=== PATIENT | female | born 1945 | race Caucasian/White ===

== ENCOUNTER → 2016-09-30 | Outpatient (CLI) | payer OTHER, MEDICARE ==
--- NOTE | 2016-09-30 15:52 | XA ---
Exam Date: 09/30/16 Patient's Age: 71 HEIGHT: 66.0 in WEIGHT: 166.0 lbs INDICATIONS: Back Pain, , Corticosteroid, Family Hx of Osteoporosis, Osteopenic, Post Menopausal FRACTURES: TREATMENTS: Ared, Baby Aspirin, Iron, Multi Vitamin, ProAir HFA ASSESSMENT: The BMD measured at Femur Neck Mean is 0.795 g/cm2 with a T-score of -1.7. This patient is considered osteopenic according to World Health Organization (WHO) criteria. Bone density is between 10 and 25% below young normal. Fracture risk is moderate. Treatment is advised. The BMD measured at Femur Troch Mean is 0.717 g/cm2 with a T-score of -1.2 is considered moderately low. Fracture risk is moderate. Treatment is advised if there are other risk factors. RESULTS: Site Region Age Classification T-Score BMD AP Spine L1-L4 70.1 Normal -0.9 1.068 g/cm2 AP Spine L1-L4 66.7 Osteopenia -1.3 1.029 g/cm2 Dual Femur Neck Mean 70.1 Osteopenia -1.7 0.795 g/cm2 Dual Femur Neck Mean 66.7 Osteopenia -1.6 0.809 g/cm2 Dual Femur Troch Mean 70.1 N/A -1.2 0.717 g/cm2 Dual Femur Troch Mean 66.7 N/A -1.1 0.720 g/cm2 Dual Femur Total Mean 70.1 Osteopenia -1.3 0.845 g/cm2 Dual Femur Total Mean 66.7 Osteopenia -1.1 0.867 g/cm2 World Health Organization - Criteria for post-menopausal, women: Normal: T-Score at or above -1 SD Osteopenia: T-Score between -1 and -2.5 SD Osteoporosis: T-Score at or below -2.5 SD RECOMMENDATION: Pharmacologic treatment recommendations & Initiate pharmacologic treatment: - In those with hip or vertebral (clinical or asymptomatic) fractures - In those with T -scores <-2.5 at the femoral neck, total hip, or lumbar spine by DXA - In postmenopausal women and men age 50 and older with low bone mass (T-score between -1.0 and -2.5, osteopenia) at the femoral neck, total hip, or lumbar spine by DXA and a 10-year hip fracture probability >3 % or a 10-year major osteoporosis-related fracture probability >20% based on the [place]-adapted WHO absolute fracture risk model (Fracture Risk Algorithm (FRAX); www. NOF.org and www.shef.ac.uk/FRAX) FOLLOW UP: People with diagnosed cases of osteoporosis or at high risk for fracture should have regular bone mineral density tests. For patients eligible for Medicare, routine testing is allowed once every 2 years. The testing frequency can be increased to 1 year for patients who have rapidly progressing disease, those who are reviewing or discontinuing medial therapy to restore bone mass, or have additional risk factors. People with diagnosed cases of osteoporosis or osteopenia should be regularly tested for bone mineral density. For patient eligible for Medicare, routine testing is allowed once every 2 years. The testing frequency can be increased to 1 year for patients who have rapidly progressing disease, or for those who are receiving medial therapy to restore bone mass. [facility] -- MICHELLE Mello [phone] - FAX: [phone] RONIT
--- NOTE | 2016-10-07 12:07 | MY ---
EXAMINATION: Bilateral digital mammography utilizing CAD. HISTORY: Screening exam. Comparison is made to previous studies dated 09/14/2015, 07/15/2014. FINDINGS: Bilateral scattered fibroglandular densities. No suspicious calcifications, masses or a rchitectural distortions. No pathologic appearing lymph nodes, no abnormal skin thickening or nipp le inversion. CAD highlighted regions appear normal at this time. IMPRESSION: BI-RADS category I - negative mammogram. Continued screening according to ACR-ACS gu idelines suggested. THE FALSE-NEGATIVE RATE OF MAMMOGRAM IS APPROXIMATELY 10%. MANAGEMENT OF A PALPABLE ABNORMALITY MUST BE BASED UPON CLINICAL GROUNDS. SENSITIVITY FOR DETECTION OF ABNORMALITIES IN DENSE BREASTS IS LOW. NOTE: A letter will be sent to the patient regarding findings. [facility] -- MICHELLE Mello [phone] - FAX [phone]
== END ==
LOC: MW.MAM 09:21
PROVIDERS: ATTEND Nurse Practitioner Family
DX: Z01.419 Encounter for gynecological examination (general) (routine) without abnormal findings (principal); Z12.31 Encounter for screening mammogram for malignant neoplasm of breast; M81.0 Age-related osteoporosis without current pathological fracture; M85.80 Other specified disorders of bone density and structure, unspecified site
CPT/HCPCS: 77080; 82270; G0202

== ENCOUNTER 2023-07-21 11:12 | Emergency (ER) | payer MEDICARE, BC, OTHER | END 2023-07-22 13:56 | disposition home or self-care (01) | LOC: MW.ED 11:12 | DX: M25.512 Pain in left shoulder (principal); J32.9 Chronic sinusitis, unspecified; Z88.7 Allergy status to serum and vaccine; V89.2XXA Person injured in unspecified motor-vehicle accident, traffic, initial encounter | CPT/HCPCS: 73030-LT; 99283; 99284 ==

== ENCOUNTER 2025-01-25 07:25 | Day surgery (SDC) | payer MEDICARE, BC ==
[~2025-01-25 07:25] MED LIST: Sodium Chloride 0.9% 10 ML Syringe FLUSH PRN; Sodium Chloride 0.9% 2.5 ML Syringe FLUSH PRN
[2025-01-25] MEDS: Lactated Ringers 1,000 ML IV SCH (08:03)
[2025-01-25] MEDS ORDERED: Propofol 200 MG/20 ML SDV ONE (09:04)
== END 2025-01-25 10:28 | disposition home or self-care (01) ==
LOC: MW.SDS 07:25
PROVIDERS: ATTEND Surgery
DX: K63.5 Polyp of colon (principal); K29.50 Unspecified chronic gastritis without bleeding; K31.A11 Gastric intestinal metaplasia without dysplasia, involving the antrum; K21.00 Gastro-esophageal reflux disease with esophagitis, without bleeding; D12.5 Benign neoplasm of sigmoid colon; D12.8 Benign neoplasm of rectum; K44.9 Diaphragmatic hernia without obstruction or gangrene; K57.30 Diverticulosis of large intestine without perforation or abscess without bleeding; E78.00 Pure hypercholesterolemia, unspecified; E03.9 Hypothyroidism, unspecified; E07.9 Disorder of thyroid, unspecified; E78.5 Hyperlipidemia, unspecified; Z88.8 Allergy status to other drugs, medicaments and biological substances; Z79.899 Other long term (current) drug therapy
CPT/HCPCS: 43239; 43251; 45380; 45385; 88305; 88342; J2003; J2704; J7120; 00813; 99100